=== PATIENT | female | born 1995 | race Caucasian/White ===

== ENCOUNTER 2017-09-19 12:58 | Emergency (ER) | payer MEDICAID ==
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
[2017-09-19] MEDS ORDERED: AZITHROMYCIN 250 MG TAB PO ONE (15:20)
== END 2017-09-19 17:40 | disposition home or self-care (01) ==
LOC: EEVIPCON 12:58
DX: T74.21XA Adult sexual abuse, confirmed, initial encounter (principal); Z87.891 Personal history of nicotine dependence
CPT/HCPCS: J0696

== ENCOUNTER 2018-03-25 16:45 | Emergency (ER) | payer OTHER, MEDICAID ==
[2018-03-25] MEDS ORDERED: ACETAMINOPHEN 325 MG TAB PO ONE (16:59)
[2018-03-25] MEDS ORDERED: IBUPROFEN 600 MG TAB PO ONE (16:59)
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
[2018-03-25 18:47] VITALS: BP 107/60
== END 2018-03-25 18:36 | disposition home or self-care (01) ==
LOC: EDUNIT#
DX: S16.1XXA Strain of muscle, fascia and tendon at neck level, initial encounter (principal); S29.012A Strain of muscle and tendon of back wall of thorax, initial encounter; S06.0X9A Concussion with loss of consciousness of unspecified duration, initial encounter; V49.50XA Passenger injured in collision with unspecified motor vehicles in traffic accident, initial encounter; Y92.9 Unspecified place or not applicable; Y99.9 Unspecified external cause status; Y93.9 Activity, unspecified

== ENCOUNTER 2018-04-30 15:00 | Inpatient (IN) | payer MEDICAID, OTHER ==
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
[2018-04-30 16:13] LABS: PLATELET COUNT 346 10^3/uL (150-400)
--- NOTE | 2018-04-30 18:47 | ASMTTCLDSP ---
[facility] Discharge Disposition Disposition: Answers: Admit Disposition Notes: Notes: In consultation with [facility] ED physician, Alejandro Castaneda MD and on-call psychiatrist, Sebastian Arriaga MD, both concurred that pt appears to meet 27-65 criteria requiring psychiatric hospitalization as pt appears to be at risk of harm to self due to a mental illness condition. Pt was given the [facility] prohibited belongings list while in the ED. Discharge Concerns/Recommendations: Notes: Pt will need housing after discharge, recommending case managment see if pt qualifies for [facility]. Was patient given the Answers: Yes Inpatient Behavioral Health Prohibited Belongings List while in the ED? For inpatient Sebastian Arriaga MD admission, the following psychiatrist agreed to accept patient for admission to Behavioral [facility] ([facility]): Type of Hold: Answers: M1/72-hour Hold Hold initiated by: Answers: Police Date Signed: 04/30/2018 06:46 PM Electronically Signed By:Jaycob Cuellar
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
--- NOTE | 2018-04-30 21:57 | ASMTLCPROG ---
Notes Note: Notes: Contacted Medicaid for Preauth: Authorized concurrent review on the by Erika byrnes call [phone] Auth#[id number] Date Signed: 04/30/2018 09:57 PM Electronically Signed By:Jaycob Cuellar
[2018-04-30] MEDS ORDERED: OLANZapine DISINTEGR 10 MG TAB PO PRN (22:57)
[2018-04-30] MEDS ORDERED: MAGNESIUM HYDROXIDE 30 ML UDCUP PO PRN (22:57)
[2018-04-30] MEDS ORDERED: ACETAMINOPHEN 325 MG TAB PO PRN (22:57)
[2018-04-30] MEDS ORDERED: LORazepam 0.5 MG TAB PO PRN (22:57)
[2018-04-30] MEDS ORDERED: MAG HYDROX/AL HYDROX/SIMETH 30 ML UDCUP PO PRN (22:57)
[2018-04-30] MEDS ORDERED: NICOTINE POLACRILEX 2 MG GUM B PRN (22:57)
[2018-04-30] MEDS ORDERED: MELATONIN 3 MG TAB PO PRN (23:00)
--- NOTE | 2018-05-01 08:08 | PDHOSCONS ---
History and Physical - Chief Complaint Depression - History of Present Illness Anabel Dominguez is a 23 yo F with a PMHx of depression who presents to [facility] with chief complaint of depression. She was found yesterday with abrasions on her forearms and reportedly took a handful of psychiatric medications. She reports that she was drinking alcohol day prior to admission. She denies other substances. She denies any physical complaints currently including chest pain, SOB, f/c, d/c, n/v, edema, headache. She does report a tightness in her chest when she has increased anxiety, but this does not occur with exertion or have associated symptoms. History Information - Allergies/Home Medication List Allergies/Adverse Reactions: No Known Allergies Allergy (Unverified 09/19/17 13:14) Home Medications: NK [No Known Home Meds] 09/19/17 [Last Taken Unknown] I have personally reviewed and updated: family history, medical history, social history, surgical history - Past Medical History psychiatric history - Surgical History Reports: no pertinent surgical hx - Family History Positive for: non-pertinent - Social History Smoking Status: Former smoker Alcohol Use: Sober Drug Use: None Review of Systems Review of Systems: ROS: 10pt was reviewed & negative except for what was stated in HPI & below Physical Exam Physical Exam: Temp Pulse Resp BP Pulse Ox 36.4 C 63 14 103/54 L 95 05/01/18 06:00 05/01/18 06:00 05/01/18 06:00 05/01/18 06:00 05/01/18 06:00 Constitutional: no apparent distress Eyes: PERRL Ears, Nose, Mouth, Throat: moist mucous membranes Cardiovascular: No edema Respiratory: no respiratory distress Gastrointestinal: No distension Skin: normal color Neurologic: AAOx3 Psychiatric: flat affect Lab Data & Imaging Review 04/30/18 15:55 04/30/18 15:55 WBC 8.73 10^3/uL (3.80-9.50) 04/30/18 15:55 RBC 4.88 10^6/uL (4.18-5.33) 04/30/18 15:55 Hgb 14.6 g/dL (12.6-16.3) 04/30/18 15:55 Hct 41.6 % (38.0-47.0) 04/30/18 15:55 MCV 85.2 fL (81.5-99.8) 04/30/18 15:55 MCH 29.9 pg (27.9-34.1) 04/30/18 15:55 MCHC 35.1 g/dL (32.4-36.7) 04/30/18 15:55 RDW 12.8 % (11.5-15.2) 04/30/18 15:55 Plt Count 346 10^3/uL (150-400) 04/30/18 15:55 MPV 9.1 fL (8.7-11.7) 04/30/18 15:55 Neut % (Auto) 74.8 % (39.3-74.2) H 04/30/18 15:55 Lymph % (Auto) 19.5 % (15.0-45.0) 04/30/18 15:55 [place] % (Auto) 4.6 % (4.5-13.0) 04/30/18 15:55 Eos % (Auto) 0.3 % (0.6-7.6) L 04/30/18 15:55 Baso % (Auto) 0.6 % (0.3-1.7) 04/30/18 15:55 Nucleat RBC Rel Count 0.0 % (0.0-0.2) 04/30/18 15:55 Absolute Neuts (auto) 6.53 10^3/uL (1.70-6.50) H 04/30/18 15:55 Absolute Lymphs (auto) 1.70 10^3/uL (1.00-3.00) 04/30/18 15:55 Absolute Monos (auto) 0.40 10^3/uL (0.30-0.80) 04/30/18 15:55 Absolute Eos (auto) 0.03 10^3/uL (0.03-0.40) 04/30/18 15:55 Absolute Basos (auto) 0.05 10^3/uL (0.02-0.10) 04/30/18 15:55 Absolute Nucleated RBC 0.00 10^3/uL (0-0.01) 04/30/18 15:55 Immature Gran % 0.2 % (0.0-1.1) 04/30/18 15:55 Immature Gran # 0.02 10^3/uL (0.00-0.10) 04/30/18 15:55 Sodium 139 mEq/L (135-145) 04/30/18 15:55 Potassium 4.3 mEq/L (3.3-5.0) 04/30/18 15:55 Chloride 107 mEq/L (97-110) 04/30/18 15:55 Carbon Dioxide 22 mEq/l (22-31) 04/30/18 15:55 Anion Gap 10 mEq/L (6-14) 04/30/18 15:55 BUN 12 mg/dL (7-23) 04/30/18 15:55 Creatinine 0.5 mg/dL (0.6-1.0) L 04/30/18 15:55 Estimated GFR > 60 04/30/18 15:55 Glucose 87 mg/dL (70-100) 04/30/18 15:55 Calcium 9.7 mg/dL (8.5-10.4) 04/30/18 15:55 Beta HCG, Qual NEGATIVE 04/30/18 15:55 Urine Opiates Screen NEGATIVE (NEGATIVE) 04/30/18 16:30 Urine Barbiturates NEGATIVE (NEGATIVE) 04/30/18 16:30 Ur Phencyclidine Scrn NEGATIVE (NEGATIVE) 04/30/18 16:30 Ur Amphetamine Screen NEGATIVE (NEGATIVE) 04/30/18 16:30 U Benzodiazepines Scrn NEGATIVE (NEGATIVE) 04/30/18 16:30 Urine Cocaine Screen NEGATIVE (NEGATIVE) 04/30/18 16:30 U Marijuana (THC) Screen NON-NEGATIVE (NEGATIVE) H 04/30/18 16:30 Ethyl Alcohol < 10 mg/dL (0-10) 04/30/18 15:55 Assessment & Plan Assessment: 1. Mental Health issues. Pending further evaluation and management per Psychiatry and mental health team. I have review patient's vital signs, laboratory data, and there is no medical contraindications to patient's continued stay on the inpatient behavioral health unit or to any psychiatric medication of procedures. Thank you for the consult. Please contact hospitalist service if there is any further questions or concerns.
--- NOTE | 2018-05-01 10:59 | ASMTBHMTP ---
Master Treatment Plan Master Treatment Plan Answers: Depressed Mood with for: Suicidal Ideation Date: 05/01/2018 Diagnosis on Admission: Posttraumatic Stress Disorder 309.81 Expected length of stay: 3-5 Days Reason for admission: Notes: Per TLC Evaluation - Pt. is a 23 year old female, never , with no children, unemployed, living with a roommate and roommates 2 daughters in [place]. Pt. presented to the ED on an M1 hold placed by police after responding to a welfare check due to active suicidal statements made to the pt's sister on the phone. Pt's sister and mother coordinated via text to call the police for an interventions. Police arrived during the call and interrupted the attempted, pt sustained abrasions and superficial lacerations. Patient's stated presenting problems: Notes: Tried to kill myself. Sister called the police, who found patient. Patient's goals for treatment: Notes: Don't know Patient's strengths: Notes: Good with people and resilient Identify supports outside of hospital: Notes: Family (Parents and sister) Discharge criteria: Notes: Suicidal ideation will resolve and patient will have a plan to safely manage recurrent suicidal ideation. Initial disposition plan/considerations: Notes: Doesn't want to go back to [facility] position in [place]. Patient would like to go back to [place], but unsure where she will stay. Master Treatment Plan Required Signatures Psychiatrist signature: Answers: Sebastian Arriaga MD: RN on-shift signature: Answers: RN: Patient signature: Answers: Patient: Date Signed: 05/01/2018 10:59 AM Electronically Signed By:Sol Lowe
--- NOTE | 2018-05-01 12:05 | PDMN ---
Medical Necessity Medical necessity: Pt meets IP criteria per & ANYI [id number]; est los >2 mn for eval/tx of major depressive disorder; pt on M1 hold due to suicide attempt; admit for further monitoring, safety, crisis stabilization & med management
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
[2018-05-01] MEDS ORDERED: IBUPROFEN 200 MG TAB PO PRN (14:56)
[2018-05-01] MEDS ORDERED: PROMETHAZINE HCL 25 MG TAB PO PRN (14:56)
[2018-05-01] MEDS ORDERED: THIAMINE HCL 100 MG TAB PO ONE (14:56)
[2018-05-01] MEDS ORDERED: PROMETHAZINE HCL 25 MG SUPPR PR PRN (14:56)
[2018-05-01] MEDS ORDERED: chlordiazePOXIDE 25 MG CAP PO PRN (14:56)
[2018-05-01] MEDS ORDERED: hydrOXYzine HCL 25 MG TAB PO PRN (14:57)
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
--- NOTE | 2018-05-02 08:34 | ASMTCMCOM ---
CM Note CM Note Notes: CC tried to converse with this client. Initially she was talkative but shut down quickly after she "felt like no one spoke to me yesterday."" CC tried to have client answer basic safety questions, in which client stated "I do not want to talk to you at all." Client left the table and returned to her room. Client presents as escalated aggressive and angry. Date Signed: 05/02/2018 08:33 AM Electronically Signed By:Eze Seay
--- NOTE | 2018-05-02 08:58 | SOAPPROG ---
SOAP Progress Note Assessment/Plan: Assessment: Major Depressive Disorder. Alcohol Use Disorder, Severe. Cannabis Use Disorder , Severe. No improvement noted (see subjective/objective note). Patient is not safe to discharge at this time as patient continues to exhibit signs of mood instability, and express mood instability symptoms. Patient requires continued inpatient care because of current acute agitation, and requires inpatient level of care to stabilize in order to no longer be a danger to herself. Patient could benefit from continued inpatient hospitalization for crisis stabilization, safety, and medication evaluation. Plan: 1. Psychotropic medications: After reviewing options, risks, and benefits patient agrees to continue current medications. No medication changes at this time as more time is needed to determine ongoing tolerability and efficacy. Plan is to continue to observe patient for response and side effects from medications, and ongoing monitoring and evaluation. 2. Review with patient informed consent and recommendations for psychotropic medication treatment listed below 3. Labs: no additional labs at this time 4. Therapy: continue milieu and group therapy 5. Further investigation including gathering information from patients relatives and review of past case records to inform treatment plan. 6. Safety/Wellness plan and follow-up outpatient appointments to be established prior to discharge. Next steps are for patient to meet with school childcare attendant to plan a safe discharge plan and establish outpatient services for ongoing treatment. 7. Confer with inpatient treatment team regarding treatment plan. 8. Psychosocial stressors addressed through CC including polysubstance abuse 9. Legal status: M1; consider STC if patient unwilling to stay voluntary 10. Consider discharge next week if patient is in stable condition, safe, and has a safe discharge plan. 11. Substance abuse interventions: alcohol and cannabis PSYCHOTROPIC MEDICATION TREATMENT INFORMED CONSENT and RECOMMENDATIONS: Review nature of condition, diagnosis, and prognosis. Review nature and purpose of psychotropic medication treatment. Review type of psychotropic medications being ordered. Review risk and benefits of psychotropic medication treatment. Review probable length of time patient will need to take medications. Review risk and benefits of not undergoing psychotropic medication treatment. Review alternative treatments to psychotropic medications. Review psychotropic medications contraindications, drug-drug interactions, side effects, and importance of reporting any side effects to a psychiatric provider or nurse during inpatient hospitalization, and upon discharge to patients psychiatric outpatient provider, primary care provider, or other health personal care worker. Review importance of asking a nurse, psychiatric provider, or primary care provider any questions or problems concerning the psychotropic medications. Verify patient understands the information that has been provided, and understands, accepts, and agrees to psychotropic medications. Review patients safety plan and importance of patient to report to staff while hospitalized if patient is ever a danger to self/others, or unable to care for self, and upon discharge, the importance for patient to contact [facility] or [facility], or go to the nearest emergency room, if patient is ever a danger to self/others, or unable to care for self. Recommend that upon discharge patient establish medication management treatment with a psychiatric provider, establishes routine therapy appointments, and follow-up with primary care provider. Verify patient understands and agrees to these recommendations. 05/02/18 08:56 Subjective: Following up with patient for evaluation of depression and safety. Patient screams, "GET AWAY FROM ME LEAVE ME THE F--- ALONE. I DON'T CARE, I DON'T WANT TO ANSWER ANYMORE F------- QUESTIONS." Patient expresses the following psychiatric symptoms "extremely p----- off." Objective: Vital Signs Temp Pulse Resp BP Pulse Ox 36.7 C 52 L 14 103/54 L 95 05/02/18 06:00 05/02/18 06:00 05/02/18 06:00 05/02/18 06:00 05/02/18 06:00 NURSING REPORT: Consulted with nursing for update on patients progress in treatment. Nurses report patient is not engaged in treatment, is not attending groups, slept 8 hours, expresses the following psychiatric symptoms: severe agitation/irritability, exhibits the following psychiatric symptoms: severe agitation, is eating all meals, is agreeable to medications and taking as prescribed with no report of side effects, with no s/s of EPS/akathisia, and denies SI/HI, denies A/V hallucinations, and denies delusions. MANAGER DIABETES UPDATE: Patient slammed down food tray and refused to meet with CC; ran to room screaming. MSE: The patient is a well-nourished female looking stated chronological age. Attire is inappropriate and dress is casual and hospital garb combination. Grooming status is inappropriate and disheveled. Ambulation is independent. Gait is normal and coordinated. Posture is normal and relaxed. Eye contact is inappropriate, and avoided. Motor activity is appropriate with purposeful, organized, coordinated movements; with no involuntary movements. Attitude is uncooperative and guarded, defensive, angry, agitated. Patient appears irritable/agitated and does not relate well to this interviewer. Language production is spontaneous. Rate is pressured, and volume is loud (screaming). Articulation is clear. Patient reports mood as okay with incongruent and expansive and irritable affect. Patients thought process is severely disorganized, non-linear, illogical. Patient does not report suicidal/ homicidal thoughts, ideas, or plans. Patient denies auditory, visual hallucinations. Patient denies delusions. Patient does not appear to be attending to internal stimuli. Patients attention and concentration are poor. Patient is oriented to person. Patients insight and judgment are poor. - Time Spent With Patient Time Spent With Patient: 15 minutes, met with patient and staff. - Pending Discharge Pending Discharge Within 24 Hours: No Pending Discharge Within 48 Hours: No ICD10 Worksheet Patient Problems: Problems Problem Status Onset Suicidal ideation Acute
[2018-05-02] MEDS ORDERED: THIAMINE HCL 100 MG TAB PO SCH (09:00)
[2018-05-02] MEDS: FOLIC ACID 1 MG TAB PO SCH (09:03)
[2018-05-02] MEDS: MULTIVITAMINS 1 EACH TAB PO SCH (09:04)
[2018-05-02] MEDS ORDERED: ARIPiprazole 5 MG TAB PO ONE (13:21)
[2018-05-02] MEDS ORDERED: ESCITALOPRAM OXALATE 10 MG TAB PO ONE (13:23)
[2018-05-02] MEDS ORDERED: GABAPENTIN 300 MG CAP PO ONE (13:23)
[2018-05-02] MEDS: GABAPENTIN 300 MG CAP PO SCH ×2 (16:29→20:57)
[2018-05-03] MEDS ORDERED: ARIPiprazole 5 MG TAB PO SCH (09:00)
[2018-05-03] MEDS ORDERED: ARIPiprazole 2 MG TAB PO SCH (09:00)
[2018-05-03] MEDS: GABAPENTIN 300 MG CAP PO SCH ×3 (09:00→20:27)
[2018-05-03] MEDS: FOLIC ACID 1 MG TAB PO SCH (09:01)
[2018-05-03] MEDS: MULTIVITAMINS 1 EACH TAB PO SCH (09:01)
[2018-05-03] MEDS: ESCITALOPRAM OXALATE 10 MG TAB PO SCH (09:01)
--- NOTE | 2018-05-03 13:45 | SOAPPROG ---
SOAP Progress Note Assessment/Plan: Assessment: Major Depressive Disorder. Alcohol Use Disorder, Moderate. Cannabis Use Disorder, Moderate. Borderline Personality Disorder. R/O Bipolar II Disorder. Improvement noted (see subjective/objective note). Patient requests discharge tomorrow. Patient could benefit from continued inpatient hospitalization for crisis stabilization, safety, and medication evaluation. Plan: 1. Psychotropic medications: After reviewing options, risks, and benefits patient agrees to continue current medications with following changes: Discontinue Abilify 5 mg po QD, increase Gabapentin to 600 mg po TID, and trial Zyprexa Zydis 5 mg po QHS. No medication changes at this time as more time is needed to determine ongoing tolerability and efficacy. Plan is to continue to observe patient for response and side effects from medications, and ongoing monitoring and evaluation. 2. Review with patient informed consent and recommendations for psychotropic medication treatment listed below 3. Labs: no additional labs at this time 4. Therapy: continue milieu and group therapy 5. Further investigation including gathering information from patients relatives and review of past case records to inform treatment plan. 6. Safety/Wellness plan and follow-up outpatient appointments to be established prior to discharge. Next steps are for patient to meet with long term care social worker to plan a safe discharge plan and establish outpatient services for ongoing treatment. 7. Confer with inpatient treatment team regarding treatment plan. 8. Psychosocial stressors addressed through CC including polysubstance abuse 9. Legal status: M1; willing to stay voluntary when M1 expires 10. Consider discharge next week if patient is in stable condition, safe, and has a safe discharge plan. 11. Substance abuse interventions: alcohol and cannabis PSYCHOTROPIC MEDICATION TREATMENT INFORMED CONSENT and RECOMMENDATIONS: Review nature of condition, diagnosis, and prognosis. Review nature and purpose of psychotropic medication treatment. Review type of psychotropic medications being ordered. Review risk and benefits of psychotropic medication treatment. Review probable length of time patient will need to take medications. Review risk and benefits of not undergoing psychotropic medication treatment. Review alternative treatments to psychotropic medications. Review psychotropic medications contraindications, drug-drug interactions, side effects, and importance of reporting any side effects to a psychiatric provider or nurse during inpatient hospitalization, and upon discharge to patients psychiatric outpatient provider, primary care provider, or other health director of medicare. Review importance of asking a nurse, psychiatric provider, or primary care provider any questions or problems concerning the psychotropic medications. Verify patient understands the information that has been provided, and understands, accepts, and agrees to psychotropic medications. Review patients safety plan and importance of patient to report to staff while hospitalized if patient is ever a danger to self/others, or unable to care for self, and upon discharge, the importance for patient to contact [facility] or [facility], or go to the nearest emergency room, if patient is ever a danger to self/others, or unable to care for self. Recommend that upon discharge patient establish medication management treatment with a psychiatric provider, establishes routine therapy appointments, and follow-up with primary care provider. Verify patient understands and agrees to these recommendations. 05/03/18 13:46 Subjective: Following up with patient for evaluation of mood instability and safety. Patient reports, "I feel much better today, calmer. Really like the response I got after taking the medication last night before bed." Patient reports she requested medication (Zyprexa Zydis 10 mg) last night around bedtime for agitation, and reports good respond for mood stability, less agitated, and irritable compared to yesterday. Patient expresses the following psychiatric symptoms moderate anxiety. Patient denies SI, denies self-injurious ideation. Patient reports taking medications as prescribed, and describes response to medications as good. Patient does not report undesirable side effects from the medications, and agrees to continue current medications. Patient requests scheduled Zyprexa for mood stability due to good response from last night PRN, patient agrees to Zyprexa Zydis 5 mg po QHS; patient agrees to increase Gabapentin to 600 mg po TID to target ongoing anxiety, and discontinue Abilify 5 mg po QD. Patient describes getting 9 hours of sleep, and reports improved sleep as she describes not sleeping well prior to her admission. Objective: Vital Signs Temp Pulse Resp BP Pulse Ox 36.7 C 52 L 14 101/59 L 95 05/03/18 06:00 05/03/18 06:00 05/03/18 06:00 05/03/18 06:00 05/03/18 06:00 NURSING REPORT: Consulted with nursing for update on patients progress in treatment. Nurses report patient is not engaged in treatment, is not attending groups, slept 8 hours, expresses the following psychiatric symptoms: severe agitation/irritability, exhibits the following psychiatric symptoms: severe agitation, is eating all meals, is agreeable to medications and taking as prescribed with no report of side effects, with no s/s of EPS/akathisia, and denies SI/HI, denies self-injurious ideation, denies A/V hallucinations, and denies delusions. INSPECTOR GOLF BALL UPDATE: Patient slammed down food tray and refused to meet with CC; ran to room screaming. TREATMENT TEAM: Patient met with treatment team for 10 minutes to review discharge plan. Patient plans to return to [place] to live with her parents and continue treatment in [place]. Patient reports she has set-up appointments for therapy and psychiatry for this at 1000. FAMILY MEETING: This REPAIR SERVICER spoke to patient's parents by phone to verify patient's plan to travel to [place] tomorrow and to move in with her parents and continue outpatient psychiatric treatment and therapy. Patients parents verify and agree with patient's plan. R/O BIPOLAR DISORDER: Patient does report hx of derian symptoms including a distinct period of abnormally or persistently irritable mood, poor sleep, more talkative than usual, racing thoughts, hyperactivity, and distractibility. Will continue to evaluate. MSE: The patient presents casually dressed and with good hygiene, and looks stated age. Patient is sitting, posture is upright, and position is relaxed. Patient appears awake, alert, and responds appropriately and reasonably during interview. Patient is engaged, relates well to interviewer, and emotional facial expression is appropriate to situation and changes appropriately with topic. Patient is cooperative, makes comfortable eye contact, and movements are voluntary, deliberate, coordinated, and smooth and even with no inappropriate movements. Patient makes laryngeal sounds effortlessly and shares conversation appropriately; pace of conversation is appropriate, and stream of talking is fluent; articulation is clear and understandable; word choice is effortless and appropriate for education level; completes sentences, occasionally pausing to think; rate and volume are appropriate for interview and setting. Patient reports mood as euthymic. Patients affect is stable with full variable range, congruent with mood, and appropriate to speech and circumstances. Patient has linear and logical thinking, with no loose associations, tangential thought, thought blocking, concrete thinking, or any other signs of formal thought disorder. Patient denies suicidal and homicidal ideation, and denies hallucinations and delusions. Patient appears to be a reliable historian with sound judgement and good insight into current condition. Patient has no apparent dysfunction in recent or remote memory noted , and no evidence of gross cognitive dysfunction noted at any point during the interview. SUBSTANCE ABUSE BRIEF INTERVENTION: Brief intervention regarding the risks of alcohol and cannabis abuse is provided to patient with goal to reduce the risk of harm that could result from the continued use of alcohol and cannabis, with the general aim to investigate the problem, raise awareness of problem, develop a solution with the patient, recommend a specific change or activity, and motivate the patient toward change. Assess substance abuse behavior and give supportive advice about harm reduction, recommend a reduction in hazardous/at- risk consumption patterns, and facilitate referrals for additional specialized treatment with care tech. Intermediate goal is for the patient to quit and attend substance abuse treatment. Intervention focus on intermediate goals to allow for more immediate success in the treatment process to keep the patient motivated. Review following with patient: Cannabis use risks: Short- term use: impaired short-term memory, impaired motor coordination, altered judgement, in high doses paranoia and psychosis. Long-term use addiction, diminished life satisfaction and achievement, symptoms of chronic bronchitis, and increased risk of chronic psychosis disorders if predisposition to such disorders. In withdrawal anger, aggression irritability, anxiety and nervousness, decreased appetite or weight loss, restlessness, and sleep difficulties with strange dreams. Alcohol/Binge Drinking risks: short-term: injuries, violence, alcohol poisoning, risky sexual behaviors. Long-term: high blood pressure, stroke, liver disease, digestive problems, cancer, learning and memory problems, depression and anxiety, social problems, and alcohol dependence. OUTPATIENT SUBSTANCE ABUSE TREATMENT: Patient referred to outpatient provider and treatment for continued treatment related to substance abuse. - Time Spent With Patient Time Spent With Patient: 30 minutes, patient met with this REPAIR SERVICER individually and with this REPAIR SERVICER and treatment team. - Pending Discharge Pending Discharge Within 24 Hours: Yes Pending Discharge Within 48 Hours: No Pending Discharge Date: 05/04/18 Pending Discharge Time: 11:00 ICD10 Worksheet Patient Problems: Problems Problem Status Onset Alcohol use disorder, severe, dependence Acute Cannabis use disorder, severe, dependence Acute Borderline personality disorder Chronic Severe major depression Chronic
--- NOTE | 2018-05-03 13:46 | BDS ---
REASON FOR ADMISSION: From the ED note dated 04/30/2018, the [facility] with abrasions on her forearms and reportedly took a handful of her psychiatric medications a few hours before presenting to the emergency department. 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 No deep lacerations. The patient reported drinking yesterday, but not prior to presenting to the emergency department. The patient denied any drug use. The patient w as minimally cooperative with questioning. The patient was admitted involuntarily on an M1 hold due to being a danger to herself. The patient was admitted for safety, crisis stabilization, and medicat ion evaluation. ADMITTING DIAGNOSES: 1. Severe major depression. 2. Suicidal ideation. 3. Alcohol use disorder. 4. Cannabis use disorder. 5. Rule out borderline personality disorder. 6. Rule out bipolar 2 disorder, current episode depressed. ADMISSION PHYSICAL EXAM: The patient was seen for hospitalist H and P consult on 04/23/2018, for [facility] clearance for inpatient Behavioral Health hospitalization and treatment. The patient was medica lly cleared for inpatient psychiatric hospitalization and treatment. For further details, please ref er to hospitalist's H and P consult dated 05/01/2018. ADMISSION LABS: 1. CBC from 04/30/2018, within normal limits, except neutrophils were elevated at 74.8, eosinophils were low at 0.3, and absolute neutrophils were elevated at 6.53. 2. BMP from 04/30/2018, was within normal limits, except creatinine was low at 0.5. 3. Hemoglobin A1c from 05/02/2018, was within normal limits at 4.8. 4. Liver function from 05/02/2018, within normal limits. 5. Lipid panel from 05/02/2018, within normal limits, except cholesterol was low at 117, LDL cholest dorita calculated was low at 48, non-HDL cholesterol was low at 60, LDL/HDL ratio was low at 0.84. 6. Beta hCG qualitative test from 04/30/2018, was negative. 7. Toxicology screen from 04/30/2018, non-negative for THC, negative for all other substances of abu se screened, and negative for ethyl alcohol. MAJOR PROCEDURES OR TESTS: None. HOSPITAL COURSE: The most prominent symptoms and behaviors while the patient was here were irritabil ity, agitation. At one point, the patient was screaming at this DUCTFIXING PLUMBER and staff. The patient presented with mood instability. Treatment modalities utilized were milieu and group therapy. Lexapro 10 mg p.o. daily was started to target mood symptoms, was tolerated with no report of side effects. Abilif y 5 mg p.o. daily was started to target mood symptoms, was tolerated with no report of side effects. Gabapentin 300 mg p.o. t.i.d. was started to target anxiety symptoms and was tolerated with no repor t of side effects and with good response. The patient requested p.r.n. Zyprexa Zydis 10 mg p.o. q.h. s. on Wednesday evening at bedtime of 05/02/2018. The patient reported to this DUCTFIXING PLUMBER today that she woke u p feeling less irritable and agitated. Options, risks and benefits were discussed with the patient. The patient agreed to discontinue Abilify 5 mg p.o. daily and requested a prescription of Zyprexa 5- 10 mg p.o. q.h.s. to target mood symptoms. The patient reports she has improved since admission, sta price to be in stable condition, feels safe to discharge, and she contracts for safety. Patient's resp onse to treatment was good. There were no adverse or unexpected results of treatment. The patient w as safe throughout her stay, active in treatment, engaged in groups, and was appropriate with staff a nd other patients. The patient met with the treatment team prior to discharge to assess readiness to discharge and review discharge plan. The treatment team consensus is the patient is in stable condi tion, has a safe discharge plan, and is ready to discharge today. CONDITION ON DISCHARGE: DISCHARGE DIAGNOSES: 1. Severe major depression. 2. Borderline personality disorder. 3. Cannabis use disorder, severe dependence. 4. Alcohol use disorder, severe dependence. 5. Bipolar 2 disorder, current episode depressed is suspected and should be ruled out. CURRENT MEDICATIONS: After reviewing options, risks and benefits with the patient, the patient agree s to continue: 1. Zyprexa 5-10 mg p.o. q.h.s. for mood symptoms. 2. Lexapro 10 mg p.o. daily for depression and anxiety. 3. Gabapentin 300-600 mg p.o. t.i.d. as tolerated for anxiety symptoms. The patient requests prescr iptions for these medications at time of discharge. Prescriptions for 30 days are provided. Prescri ptions are reviewed with the patient at time of discharge to ensure accuracy and patient understandin g. DISPOSITION: The patient left the hospital independently and voluntarily. The patient plans to retu rn to her friend and employer's home after discharge to pack up her belongings. The patient has a fl ight booked on [place] that leaves tomorrow afternoon. The patient plans to fly to [facility] and live with her mother and father. This DUCTFIXING PLUMBER spoke to the patient's mother and father by phone gail medinaay to verify this plan. The patient's parents agree with this plan and report that they plan to [place] ve the patient stay with them. The patient's parents agree that patient is safe to discharge and has a safe discharge plan to return to [place] where she will live with her parents and continue karla tment, including medication management with a psychiatrist, individual therapy and group therapy, inc luding DBT. FOLLOWUP: LEGAL COURSE: The patient was admitted on an M1 hold for involuntary inpatient psychiatric [facility]. Patient discharged today independently and voluntarily. ATTITUDE AT TIME OF DISCHARGE: The patient's attitude was positive at time of discharge, and patient reports looking forward to discharging today. The patient reports to this DUCTFIXING PLUMBER and the treatment team that she has spoken with her parents and made a plan to live with them. The patient also reports th at she has set up outpatient appointments in [place] for morning at 10 a.m. Patient repo rts that she has established with these services in the past and plans to continue psychiatric treatm ent therapy, groups, and DBT therapy. The patient reports good response for medications in regulatin g and managing her mood. LABS AND STUDIES: There were no pending labs or studies at time of discharge. ADVANCE DIRECTIVES: There were no advance directives on file, and patient was full code during this hospitalization. /[id number]
[2018-05-03] MEDS ORDERED: OLANZapine DISINTEGR 5 MG TAB PO SCH (21:00)
[2018-05-04 06:38] VITALS: BP 107/54
[2018-05-04] MEDS: FOLIC ACID 1 MG TAB PO SCH (08:16)
[2018-05-04] MEDS: MULTIVITAMINS 1 EACH TAB PO SCH (08:16)
[2018-05-04] MEDS: ESCITALOPRAM OXALATE 10 MG TAB PO SCH (08:17)
[2018-05-04] MEDS: GABAPENTIN 300 MG CAP PO SCH (08:19)
--- NOTE | 2018-05-04 14:42 | BDS ---
REASON FOR ADMISSION: Pertinent data from the ED note dated 04/30/2018, patient with a history of depression presents to the emergency department with abrasions on her forearms and reportedly took a handful of her psychiatric medications a few hours ago in a suicide attempt. Patient was found in a bathtub while baby-sitting with these abrasions. No deep lacerations. Patient reported drinking yesterday, but not prior to presenting to the emergency department. Patient denied other drug use. Patient was minimally cooperative with questioning during ER evaluation. Patient was admitted involuntarily on an M1 hold due to being a danger to herself. Patient was admitted for safety, crisis stabilization, and medication evaluation. ADMISSION DIAGNOSES: 1. Borderline personality disorder. 2. Bipolar II disorder. 3. Cannabis use disorder, severe. 4. Alcohol use disorder, severe. ADMISSION PHYSICAL EXAM: Patient was seen on 05/01/2018, for hospitalist H and P consult for medical clearance for inpatient behavioral health stay. Patient was medically cleared for inpatient behavioral stay and psychiatric treatment and procedures. For further details, please refer to hospitalist's H and P consult dated 05/01/2018. ADMISSION LABS: CBC from 04/30/2018, within normal limits, except neutrophils were elevated at 74.8, eosinophils were low at 0.3, absolute neutrophils were elevated at 6.53. BMP from 04/30/2018, within normal limits, except creatinine was low at 0.53. Hemoglobin A1c from 05/02/2018, within normal limits. Liver function from 05/02/2018, within normal limits. Lipid panel from 05/02/2018, within normal limits, except cholesterol was low at 117, LDL cholesterol calculated was low at 48, non-HDL cholesterol was low at 60, LDL/HDL ratio was low at 0.846. Beta hCG qualitative test from 04/30/2018, was negative. Toxicology screen from 04/30/2018, non-negative for marijuana, negative for all other substances screened, and negative for ethyl alcohol. MAJOR PROCEDURES/TESTS: None. HOSPITAL COURSE: The most prominent symptoms and behaviors while patient was here were severe mood instability. Patient was irritable, agitated. Treatment modalities utilized were milieu and group therapy. Lexapro 10 mg was continued to target mood symptoms, was tolerated with no report of side effects and with good response. Gabapentin 300 mg p.o. t.i.d. was continued and titrated to 600 mg p.o. t.i.d., was tolerated with no report of side effects and with good response. Patient reported a good response for mood after taking Zyprexa Zydis 10 mg p.o. q.h.s. as needed. Patient requested this medication for mood instability. Patient agreed to Zyprexa Zydis 5 mg p.o. q.h.s., was tolerated with no report of side effects and with good response. Patient has improved considerably with no signs of psychiatric symptoms and no psychiatric symptoms expressed at time of discharge. Patient reports she has improved since admission, states to be in stable condition, feels safe to discharge, and she contracts for safety. Patient's response to treatment was good. There were no adverse or unexpected results of treatment. The patient was safe throughout her stay, active in treatment, engaged in groups, and was appropriate with staff and other patients. Patient met with the treatment team prior to discharge to assess readiness to discharge and review discharge plan. The treatment team consensus is the patient is in stable condition, has a safe discharge plan, and is ready to discharge today. CONDITION AT DISCHARGE: Patient is in stable condition and is no longer a danger to self or others, and is not gravely disabled due to mental illness. Patient is no longer in need of inpatient level of care, and can be safely and effectively treated within the community. The patients level of risk at time of discharge is low. MSE: The patient is casually dressed and with good hygiene , and looks stated age. Patient is sitting, posture is upright, and position is relaxed. Patient appears awake, alert, and responds appropriately and reasonably during interview. Patient is engaged, relates well to interviewer, and emotional facial expression is appropriate to situation and changes appropriately with topic. Patient is cooperative, makes comfortable eye contact , and movements are voluntary, deliberate, coordinated, and smooth and even with no inappropriate movements. Patient makes laryngeal sounds effortlessly and shares conversation appropriately; pace of conversation is appropriate, and stream of talking is fluent; articulation is clear and understandable; word choice is effortless and appropriate for education level; completes sentences, occasionally pausing to think; rate and volume are appropriate for interview and setting. Patient reports mood as euthymic. Patients affect is stable with full variable range, congruent with mood, and appropriate to speech and circumstances. Patient has linear and logical thinking, with no loose associations, tangential thought, thought blocking, concrete thinking, or any other signs of formal thought disorder. Patient denies suicidal and homicidal ideation, and denies hallucinations and delusions. Patient appears to be a reliable historian with sound judgement and good insight into current condition. Patient has no apparent dysfunction in recent or remote memory noted , and no evidence of gross cognitive dysfunction noted at any point during the interview. DISCHARGE DIAGNOSES: 1. Borderline personality disorder. 2. Bipolar II disorder. 3. Cannabis use disorder, severe. 4. Alcohol use disorder, severe. CURRENT MEDICATIONS: After reviewing options risks and benefits with the patient, patient agrees to continue: 1. Lexapro 10 mg p.o. daily. 2. Gabapentin 600 mg p.o. t.i.d. 3. Zyprexa 5 mg p.o. q.h.s. Patient requests prescriptions for the following medications at time of discharge: 1. Lexapro 10 mg p.o. daily. 2. Gabapentin 600 mg p.o. t.i.d. 3. Zyprexa 5 mg p.o. q.h.s. Prescriptions for 30 days are provided. Prescriptions are reviewed with the patient at time of discharge to ensure accuracy and patient understanding. 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 Patient reports her plane leaves at 4 p.m. and patient plans to arrive in [place] and stay with her parents. This [employer] SALES REPRESENTATIVE spoke to patient's parents and parents are aware of this plan and agree with this plan. FOLLOWUP: product safety coordinator reports the appropriate outpatient follow-up services have been established and outpatient appointments have been scheduled. The patient received written instructions with times and dates of outpatient follow-up appointments. The following follow-up recommendations were provided to the patient at discharge: Continue psychotropic medications as prescribed and attend appointments as scheduled. Report any side effects to a psychiatric outpatient provider, a primary care provider, or other health career and guidance counselor. Address any questions or problems concerning the psychotropic medications with a psychiatric outpatient provider, a primary care provider, or other health career and guidance counselor. Contact [facility] or [facility], or go to the nearest emergency room, if you are ever a danger to yourself/others, or unable to care for yourself. As soon as possible, establish a routine medication management treatment with a psychiatric provider, establish routine therapy appointments, and follow-up with a primary care provider. SUBSTANCE ABUSE BRIEF INTERVENTION: Brief intervention regarding the risks of alcohol and cannabis abuse is provided to patient with goal to reduce the risk of harm that could result from the continued use of alcohol and cannabis, with the general aim to investigate the problem, raise awareness of problem, develop a solution with the patient, recommend a specific change or activity, and motivate the patient toward change. Assess substance abuse behavior and give supportive advice about harm reduction, recommend a reduction in hazardous/at- risk consumption patterns, and facilitate referrals for additional specialized treatment with foster care therapist. Intermediate goal is for the patient to quit and attend outpatient substance abuse treatment. Intervention focus on intermediate goals to allow for more immediate success in the treatment process to keep the patient motivated. Review following with patient: Cannabis use risks: Short-term use: impaired short-term memory, impaired motor coordination, altered judgement, in high doses paranoia and psychosis. Long-term use addiction, diminished life satisfaction and achievement, symptoms of chronic bronchitis, and increased risk of chronic psychosis disorders if predisposition to such disorders. In withdrawal anger, aggression irritability, anxiety and nervousness, decreased appetite or weight loss, restlessness, and sleep difficulties with strange dreams. Alcohol/Binge Drinking risks: short-term: injuries, violence, alcohol poisoning, risky sexual behaviors. Long-term: high blood pressure, stroke, liver disease, digestive problems, cancer, learning and memory problems, depression and anxiety, social problems, and alcohol dependence. OUTPATIENT SUBSTANCE ABUSE TREATMENT: Patient referred to outpatient provider and treatment for continued treatment related to substance abuse. LEGAL COURSE: Patient was admitted on an M1 hold for inpatient involuntary hospitalization. Patient discharged today independently and voluntarily. ATTITUDE AT TIME OF DISCHARGE: The patients attitude was positive at time of discharge, and patient reports looking forward to discharging today. The patient reports she feels safe to discharge, is no longer a danger to herself or others, is in stable condition, and contracts for safety. Patient states she will continue medications as prescribed, and establish medication management treatment with an outpatient provider after discharge. Patient reports she understands the information that has been provided to her, and she understands, accepts, and agrees to psychotropic medications. Patient describes internal protective factors as the coping skills she has learned while hospitalized here, and she plans to continue to practice these coping skills after discharge. LABORATORY/STUDIES: There were no pending labs or studies at time of discharge. ADVANCED DIRECTIVES: There were no advance directives on file and the patient was full code during hospitalization. The following psychotropic medication treatment informed consent and recommendations were provided to the patient at time of discharge. Patient reports she understands, accepts, and agrees to the information that has been provided. PSYCHOTROPIC MEDICATION TREATMENT INFORMED CONSENT and RECOMMENDATIONS: Review nature of condition, diagnosis, and prognosis. Review nature and purpose of psychotropic medication treatment. Review type of psychotropic medications being prescribed. Review risk and benefits of psychotropic medication treatment. Review probable length of time will need to take medications. Review risk and benefits of not undergoing psychotropic medication treatment. Review alternative treatments to psychotropic medications. Review psychotropic medications contraindications, side effects, and importance of reporting any side effects to a psychiatric provider, primary care provider, or other health career and guidance counselor. Review importance of her asking a psychiatric provider or primary care provider any questions or problems concerning the psychotropic medications. Review importance of reporting to a psychiatric provider, primary care provider, or other health career and guidance counselor if she plans to or becomes . Review safety plan and the importance to contact [facility] or [facility] , or go to the nearest emergency room, if ever a danger to yourself/others, or unable to care for yourself. Recommend upon discharge to establish routine medication management treatment with a psychiatric provider, establish routine therapy appointments, and follow-up with a primary care provider. Verify patient understands, accepts, and agrees to the information that has been provided. SUICIDE ASSESSMENT FIVE-STEP EVALUATION AND TRIAGE (1) RISK FACTORS: (a) Suicidal behavior: patient reports attempt in February 2018 with hospitalization following at [facility] and attempt prior to this hospitalization (b) Current/past psychiatric disorders: Major Depressive Disorder, Borderline Personality Disorder, Cannabis Use Disorder, Alcohol Use Disorder, R/O Bipolar Disorder II current episode depressed (c) Nunes symptoms: none expressed or exhibited at time of discharge (d) Family history: none (e) Precipitants/Stressors/Interpersonal: none (f) Change in treatment: discharge from psychiatric hospital (g) Access to firearms: none (2) PROTECTIVE FACTORS: (a) Internal: coping skills learned while hospitalized (b) External: family and future; parents have established behavioral plan for patient, patient called and set-up appointments in [place] prior to her discharge for therapy and psychiatric services for May. (3) SUICIDAL INQUIRY: (a) Ideation: none (b) Plan: none (c) Behaviors: none; patient was safe throughout stay with no suicidal or parasuicidal behaviors (d) Intent: none (4) RISK LEVEL: Low: modifiable risk factors, strong protective factors; no suicidal or self-injurious ideation. Intervention: treatment plan to reduce symptoms including medications and therapy, provided emergency/crisis numbers, and established follow-up plan including patient to travel to [place] and live with her parents. Patient has called and set-up outpatient appointments for psychiatric services for this at 1000. Patient reports good response from medications for mood instability; reports feeling less agitated and irritable with medications. Patient adherent to medications and reports intentions are to continue taking medications after discharge. /[id number]/MODL [id number]
== END 2018-05-04 09:00 | disposition home or self-care (01) | DRG 883 ==
LOC: EDUNIT# → BBEH 22:20
PROVIDERS: ADMIT Psychiatry & Neurology Psychiatry; ATTEND Psychiatry & Neurology Psychiatry
DX: F60.3 Borderline personality disorder (principal); F31.81 Bipolar II disorder; F12.959 Cannabis use, unspecified with psychotic disorder, unspecified; Z72.89 Other problems related to lifestyle
CPT/HCPCS: 80305; G0480